=== PATIENT | male | born 1990 ===

== ENCOUNTER 2024-12-20 01:36 | Emergency (ER) | payer SELFPAY ==
[~2024-12-20] VITALS: Ht 170.2 cm; Wt 81.8 kg
[2024-12-20 02:51] LABS: Sodium 140 mmol/L (136-145)
[2024-12-20 02:52] LABS: Anion Gap 9 (5-15); Calcium 8.8 mg/dL (8.7-10.4); Carbon Dioxide 23 mmol/L (20-31)
[2024-12-20 02:53] LABS: Chloride 108 mmol/L (98-107); Potassium 3.5 mmol/L (3.5-5.1)
[2024-12-20 02:55] LABS: Hematocrit 41.1 % (41.0-53.0); Hemoglobin 13.8 g/dL (13.5-17.5); Mean Corpuscular Hemoglobin 30.8 pg (28.0-32.0); Mean Corpuscular Volume 91.9 fL (80.0-100.0); Nucleated Red Blood Cells % 0.0 %
[2024-12-20 02:57] LABS: BUN/Creatinine Ratio 24.2 (10.0-20.0); Blood Urea Nitrogen 16 mg/dL (9-23)
[2024-12-20 02:58] LABS: Glucose 132 mg/dL (74-106)
--- NOTE | 2024-12-20 04:23 | ED.PDOC ---
Altered Mental Status HPI Comments 34-year-old male who is brought in by ambulance for altered level of consciousness. Per EMS report, bystanders called after endorsing on patient's being found unconscious on the sidewalk following excessive amount of alcohol consumption while at a bar nearby. Vitals were noted to have been stable. Normal limits, with the exception of a blood pressure of 115/74 and a blood glucose of 202. Route, patient vomited 1 time. No additional acute symptoms endorsed. 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 Chief Complaint: ETOH Time Seen by MD: 01:30 Reviewed Notes: Nurses Notes, Grain Thresher Notes, Medications, Allergies Allergies: Coded Allergies: NO KNOWN ALLERGIES (Unverified , 12/20/24) Information Source: Patient, Emergency Med Personnel Mode of Arrival: EMS Severity: Moderate Timing: Hours Duration: Since onset Prehospital treatment: 12 Lead EKG, Accucheck, Retail Sales Specialist Quality: Decreased Alertness Recent: Medication/Drug Abuse Other History REVIEW OF SYSTEMS: No fever, no chills, or fatigue HEENT: No sore throat, no earache, no congestion, no neck pain. Cardiac: No chest pain. No palpitations. Lungs: No shortness of breath, no cough. GI: No nausea, no vomiting, no diarrhea, no constipation, no abdominal pain : No dysuria, frequency, or urgency. No hematuria. Musculoskeletal: No joint pain , no joint swelling, no extremity edema. Skin: No rash, no itching. Neuro: ALOC secondary to alcohol intoxication, No headache, no dizziness, no weakness Review of Systems: REVIEW OF SYSTEMS: No fever, no chills, or fatigue HEENT: No sore throat, no earache, no congestion, no neck pain. Cardiac: No chest pain. No palpitations. Lungs: No shortness of breath, no cough. GI: No nausea, no vomiting, no diarrhea, no constipation, no abdominal pain : No dysuria, frequency, or urgency. No hematuria. Musculoskeletal: No joint pain , no joint swelling, no extremity edema. Skin: No rash, no itching. Neuro: No headache, no dizziness, no weakness Vital Signs Vital Signs Date Time Temp Pulse Resp B/P (MAP) Pulse Ox O2 Delivery O2 Flow Rate FiO2 12/20/24 05:40 Room Air* 0 21 12/20/24 05:24 97.8 79 14 100/66 (77) 97 97.8 Physical Exam General: Awake, alert and oriented. No acute distress. Skin: Skin in warm, dry and intact. Appropriate color for ethnicity. HEENT: The head is normocephalic and atraumatic. Conjunctivae are clear without exudates or hemorrhage. Sclera is non-icteric. EOM are intact. No signs of nysta gmus. Eyelids are normal in appearance without swelling or lesions. Oral mucosa is pink and moist Neck: The neck is supple with normal range of motion. No JVD. Cardiac: Heart rate and rhythm are normal. No murmurs, gallops, or rubs are auscultated. Respiratory: No signs of respiratory distress. Lung sounds are clear in all lobes bilaterally without rales, rhonchi, or wheezes. Abdominal: Abdomen is soft, non-tender without distention, guarding or rigidity. Bowel sounds are present and normoactive in all four quadrants. Extremities: Upper and lower extremities are atraumatic in appearance without deformity or edema. Neurological: The patient is awake, alert and oriented to person, place, and time with normal speech. Speech is clear. There is no facial asymmetry. Psychiatric: Sleeping but easily arousable with slow slurred speech Past Medical History PAST MEDICAL HISTORY: Denies Surgical History: Denies all surgeries Family History Family History: Unknown Social History Smoker: Non-Smoker Alcohol: Occasionally Drugs: Methamphetamine (Crystal meth, last use was 3 months ago) Lives In: Home Was a procedure done? Was a procedure done?: No Differential Diagnosis (ALOC) Differential Diagnosis: Dehydration, Encephalopathy, Hypoxemia, Drug Overdose, ETOH Intoxication X-Ray, Labs, Meds, VS Vital Signs Date Time Temp Pulse Resp B/P (MAP) Pulse Ox O2 Delivery O2 Flow Rate FiO2 12/20/24 05:40 Room Air* 0 21 12/20/24 05:24 97.8 79 14 100/66 (77) 97 97.8 12/20/24 01:50 98.8 94 18 115/72 (86) 98 98.8 Lab Test 12/20/24 02:19 Range/Units White Blood Count 7.3 4.4-10.8 10^3/uL Red Blood Count 4.47 L 4.5-5.90 10^6/uL Hemoglobin 13.8 13.5-17.5 g/dL Hematocrit 41.1 41.0-53.0 % Mean Corpuscular Volume 91.9 80.0-100.0 fL Mean Corpuscular Hemoglobin 30.8 28.0-32.0 pg Mean Corpuscular Hemoglobin Concent 33.5 32.0-36.0 g/dL Red Cell Distribution Width 15.1 H 11.8-14.3 % Platelet Count 252 140-450 10^3/uL Mean Platelet Volume 7.8 6.9-10.8 fL Neutrophils (%) (Auto) 67.2 37.0-80.0 % Lymphocytes (%) (Auto) 26.1 10.0-50.0 % Monocytes (%) (Auto) 5.1 0.0-12.0 % Eosinophils (%) (Auto) 1.4 0.0-7.0 % Basophils (%) (Auto) 0.2 0.0-2.0 % Neutrophils # (Auto) 4.9 1.6-8.6 10 ^3/uL Lymphocytes # (Auto) 1.9 0.4-5.4 10 ^3/uL Monocytes # (Auto) 0.4 0-1.3 10 ^3/uL Eosinophils # (Auto) 0.1 0-0.8 10 ^3/uL Basophils # (Auto) 0 0-0.2 10 ^3/uL Nucleated Red Blood Cells 0.0 % Sodium Level 140 136-145 mmol/L Potassium Level 3.5 3.5-5.1 mmol/L Chloride Level 108 H 98-107 mmol/L Carbon Dioxide Level 23 20-31 mmol/L Anion Gap 9 5-15 Blood Urea Nitrogen 16 9-23 mg/dL Creatinine 0.66 L 0.700-1.30 mg/dL Glomerular Filtration Rate Calc 125 >90 mL/min BUN/Creatinine Ratio 24.2 H 10.0-20.0 Serum Glucose 132 H 74-106 mg/dL Calcium Level 8.8 8.7-10.4 mg/dL Plasma/Serum Blood Alcohol 253.5 H <10 mg/dL Current Medications Medications (Trade) Dose Ordered Sig/Ulises Route Start Time Stop Time Status Last Admin Sodium Chloride 1,000 ml @ 1,000 mls/hr Q1H ONCE IV 12/20/24 02:00 12/20/24 02:59 DC 12/20/24 06:00 Ondansetron HCl (Zofran) 4 mg ONCE ONCE IV 12/20/24 02:00 12/20/24 02:01 DC 12/20/24 06:11 Time of 1ST Reevaluation: 02:00 Reevaluation 1ST: Unchanged Patient Education/Counseling: Diagnosis, Treatment Family Education/Counseling: No Family Present Change of Shift?: Yes (SIGNED OUT TO DR. ASHBY AT 0600) SEPSIS Sepsis Screen Date sepsis recognized/suspect: Dec 20, 2024 Time Sepsis recognized/suspect: 015 Recent Procedure: No On Antibiotic Therapy: No Respiratory Rate >20: No Heart Rate >90: Yes Temp<36 C (96.8 F) or >38.3 C: No SBP <90 or MAP <65 mmHG: No New Acute Mental Status Change: Yes Is the patient on CPAP, BIPAP,: No Physician Orders Urinalysis (12/20/24 01:46) Drug Screen (12/20/24 01:46) Vital Signs Date Time Temp Pulse Resp B/P (MAP) Pulse Ox O2 Delivery O2 Flow Rate FiO2 12/20/24 05:40 Room Air* 0 21 12/20/24 05:24 97.8 79 14 100/66 (77) 97 97.8 12/20/24 01:50 98.8 94 18 115/72 (86) 98 98.8 Laboratory Tests Test 12/20/24 02:19 White Blood Count 7.3 10^3/uL (4.4-10.8) Medications Medications Dose Ordered Sig/Ulises Route Start Time Stop Time Status Last Admin Dose Admin Ondansetron HCl 4 mg ONCE ONCE IV 12/20/24 02:00 12/20/24 02:01 DC 12/20/24 06:11 Sodium Chloride 1,000 ml @ 1,000 mls/hr Q1H ONCE IV 12/20/24 02:00 12/20/24 02:59 DC 12/20/24 06:00 Departure 1 Departure Time of Disposition: 08:11 (Patient is now clinically sober. Patient is ambulating without assistance, A&O x4 and tolerating p.o..) Impression: Primary Impression: Alcohol intoxication Qualified Codes: F10.920 - Alcohol use, unspecified with intoxication, uncomplicated Disposition: 01 HOME / SELF CARE / HOMELESS Condition: Stable Additional Instructions: You were intoxicated. It is important to only drink in moderation. If you need help quitting you can call (HELP). If your symptoms worsen or you have any other concerns then please return to the ER. Critical Care Note Critical Care Time?: No Stability Stability form required: No Heart Score Heart Score: Heart Score Response (Comments) Value History N/A 0 EKG N/A 0 Age N/A 0 Risk Factors N/A 0 Troponin N/A 0 Total 0 I personally scribed for MINA CHING MD ([email or web address]) on 12/20/24 at 04:23. Electronically submitted by Nilson Driscoll [email or web address]). MINA CHING MD Dec 20, 2024 04:23 DANN FERNANDEZ MD Dec 20, 2024 08:12
[2024-12-20] MEDS: SODIUM CHLORIDE 0.9% 1,000 ML IV ONE (06:00)
[2024-12-20] MEDS: ONDANSETRON HCL 4 MG/2 ML VIAL IV ONE (06:11)
[2024-12-20 08:54] VITALS: BP 106/68; PULSE 90; RESP 16; TEMP 97.7; O2SAT 97
== END 2024-12-20 08:56 | disposition home or self-care (01) ==
LOC: EDBD 01:36 → ER 01:36
DX: F10.129 Alcohol abuse with intoxication, unspecified (principal); Z79.899 Other long term (current) drug therapy; Y90.9 Presence of alcohol in blood, level not specified
CPT/HCPCS: 36415; 80048; 80320; 85025; 96361; 96374; 99283; J2405; J7030